=== PATIENT | female | born 1995 | race American Indian/Alaskan Native ===

== ENCOUNTER 2020-09-15 13:03 | Emergency (ER) | payer OTHER ==
[2020-09-15 14:11] VITALS: BP 133/83
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
[2020-09-15 16:18] LABS: HCG Qualitative,Urine Negative (Negative)
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
== END 2020-09-15 18:15 | disposition home or self-care (01) ==
LOC: ED 13:03
DX: S39.012A Strain of muscle, fascia and tendon of lower back, initial encounter (principal); V89.2XXA Person injured in unspecified motor-vehicle accident, traffic, initial encounter; Y93.89 Activity, other specified; Y92.410 Unspecified street and highway as the place of occurrence of the external cause; Y99.8 Other external cause status
CPT/HCPCS: 72100; 81025; 99283

== ENCOUNTER 2020-11-02 02:42 | Emergency (ER) | payer MEDICAID, OTHER ==
[2020-11-02 02:52] VITALS: BP 130/81
[2020-11-02] MEDS ORDERED: predniSONE 20 MG TAB PO ONE (03:04)
[2020-11-02] MEDS ORDERED: ONDANSETRON 4 MG ODT TAB PO ONE (03:04)
[2020-11-02] MEDS ORDERED: HYDROcodone/ACETAMINOPHEN 5-325 MG TAB PO ONE (03:04)
[2020-11-02] MEDS ORDERED: IBUPROFEN 600 MG TAB PO ONE (03:04)
--- NOTE | 2020-11-02 03:20 | Emergency Department Report ---
ED Extremity Problem HPI - General Chief complaint: Extremity Injury, Lower Stated complaint: LEFT FOOT SWOLLEN Source: patient Mode of arrival: Ambulatory Limitations: No Limitations - History of Present Illness Initial comments: Patient is a 25-year-old -[place] female with no past medical history presents to the ED with complaint of acute onset persistent severe left plantar foot pain for the last 2 days. Patient said that she has not been able to bear weight on the left foot because of worsening pain in the left medial plantar aspect of the foot. Patient states that the pain is worse with ambulation or palpation of the left plantar foot, and that she has not been able to bear weight on the left foot because of pain. Patient denies fall, traumatic injury, numbness and tingling or weakness of left foot, back pain, chest pain, shortness of breath, dizziness, cough, heavy lifting or fever and chills. MD Complaint: extremity pain (left plantar foot pain) -: Sudden, days(s) (2) Location: left, lower extremity (left plantar foot pain) History of Same: No -: Yes arthralgia (left plantar foot pain) Radiation: none Severity scale (0 -10): 8 Quality: aching, sharp Consistency: constant Improves with: nothing Worsens with: weight bearing, walking, exertion, palpation Associated Symptoms: denies other symptoms, arthralgias. denies: chest pain, shortness of breath, fever, myalgias, rash, other - Related Data Previous Rx's Medication Instructions Recorded Last Taken Type Ibuprofen [Motrin 800 MG tab] 800 mg PO Q8HR PRN #21 tablet 09/15/20 Unknown Rx Ibuprofen [Motrin] 800 mg PO Q8HR PRN #30 tablet 11/02/20 Unknown Rx methOCARBAMOL [Robaxin TAB] 500 mg PO Q12H PRN 10 Days #24 tab 11/02/20 Unknown Rx predniSONE [Deltasone] 60 mg PO QDAY #15 tab 11/02/20 Unknown Rx traMADoL [Ultram] 50 mg PO Q6HR PRN #12 tablet 11/02/20 Unknown Rx Allergies Allergy/AdvReac Type Severity Reaction Status Date / Time No Known Allergies Allergy Unverified 09/15/20 14:11 ED Review of Systems ROS: Stated complaint: LEFT FOOT SWOLLEN Other details as noted in HPI Constitutional: denies: chills, fever Eyes: denies: eye pain, eye discharge, vision change ENT: denies: ear pain, throat pain Respiratory: denies: cough, shortness of breath, wheezing Cardiovascular: denies: chest pain, palpitations Endocrine: no symptoms reported Gastrointestinal: denies: abdominal pain, nausea, diarrhea Genitourinary: denies: urgency, dysuria, discharge Musculoskeletal: arthralgia (left plantar foot pain). denies: back pain, joint swelling Skin: denies: rash, lesions Neurological: denies: headache, weakness, paresthesias Psychiatric: denies: anxiety, depression Hematological/Lymphatic: denies: easy bleeding, easy bruising ED Past Medical Hx - Past Medical History Previous Medical History?: No - Surgical History Past Surgical History?: No - Social History Smoking Status: Never Smoker Substance Use Type: Alcohol - Medications Home Medications: Home Medications Medication Instructions Recorded Confirmed Last Taken Type Ibuprofen [Motrin 800 MG tab] 800 mg PO Q8HR PRN #21 tablet 09/15/20 Unknown Rx Ibuprofen [Motrin] 800 mg PO Q8HR PRN #30 tablet 11/02/20 Unknown Rx methOCARBAMOL [Robaxin TAB] 500 mg PO Q12H PRN 10 Days #24 tab 11/02/20 Unknown Rx predniSONE [Deltasone] 60 mg PO QDAY #15 tab 11/02/20 Unknown Rx traMADoL [Ultram] 50 mg PO Q6HR PRN #12 tablet 11/02/20 Unknown Rx ED Physical Exam - General Limitations: No Limitations General appearance: alert, in no apparent distress - Head Head exam: Present: atraumatic, normocephalic, normal inspection - Eye Eye exam: Present: normal appearance, PERRL, EOMI Pupils: Present: normal accommodation - ENT ENT exam: Present: normal exam, normal orophraynx, mucous membranes moist, TM's normal bilaterally, normal external ear exam - Neck Neck exam: Present: normal inspection, full ROM - Respiratory Respiratory exam: Present: normal lung sounds bilaterally. Absent: respiratory distress, wheezes, rales, rhonchi, stridor, chest wall tenderness, accessory muscle use, decreased breath sounds, prolonged expiratory - Cardiovascular Cardiovascular Exam: Present: regular rate, normal rhythm, normal heart sounds. Absent: systolic murmur, diastolic murmur, rubs, gallop - GI/Abdominal GI/Abdominal exam: Present: soft, normal bowel sounds. Absent: tenderness, guarding, rebound, hyperactive bowel sounds, hypoactive bowel sounds, or ganomegaly - Extremities Exam Extremities exam: Present: normal inspection, tenderness (Palpable left medial plantar foot tenderness with limited range of motion due to pain), normal capillary refill. Absent: full ROM, pedal edema, joint swelling, calf tenderness - Back Exam Back exam: Present: normal inspection, full ROM. Absent: tenderness, CVA tenderness (R), CVA tenderness (L), muscle spasm, paraspinal tenderness, vertebral tenderness - Neurological Exam Neurological exam: Present: alert, oriented X3, CN II-XII intact, normal gait, reflexes normal - Psychiatric Psychiatric exam: Present: normal affect, normal mood - Skin Skin exam: Present: warm, dry, intact, normal color. Absent: rash ED Course Vital Signs 11/02/20 02:48 Temperature 98.0 F Pulse Rate 87 Respiratory 12 Rate Blood Pressure 130/81 O2 Sat by Pulse 100 Oximetry ED Medical Decision Making - Medical Decision Making This is a 25-year-old -[place] female with no past medical history presents to the ED with complaint of acute onset persistent severe left plantar foot pain for the last 2 days. Patient said that she has not been able to bear weight on the left foot because of worsening pain in the left medial plantar aspect of the foot. Patient states that the pain is worse with ambulation or palpation of the left plantar foot, and that she has not been able to bear weight on the left foot because of pain. In the ED, patient is alert and oriented x3 and is not in any distress. Patient was treated for pain in the ED and also had her left foot fitted with postop shoe. On reevaluation, patient's pain is well controlled medication. Patient will discharge home on pain medi cations and advised follow-up with her primary care physician in 5 to 7 days for reevaluation or return to the ED immediately if symptoms get worse. - Differential Diagnosis Plantar fasciitis; Tendonitis; Muscle strain; muscle spasm Critical care attestation.: If time is entered above; I have spent that time in minutes in the direct care of this critically ill patient, excluding procedure time. ED Disposition Clinical Impression: Plantar fasciitis of left foot, Tendinitis of left foot Muscle strain of left foot Qualifiers: Encounter type: initial encounter Qualified Code(s): S96.912A - Strain of unspecified muscle and tendon at ankle and foot level, left foot, initial encounter Disposition: TO HOME OR SELFCARE Is pt being admited?: No Does the pt Need Aspirin: No Condition: Stable Instructions: Muscle Strain, [id number], Plantar Fasciitis Rehab-SportsMed, Tendinitis, [id number] Additional Instructions: Take medication with food, drink plenty of fluids and follow-up with your primary care physician in 7 to 10 days for reevaluation. Return to the ED immediately if symptoms get worse. Prescriptions: predniSONE [Deltasone] 60 mg PO QDAY #15 tab Ibuprofen [Motrin] 800 mg PO Q8HR PRN #30 tablet PRN Reason: Pain , Severe (7-10) methOCARBAMOL [Robaxin TAB] 500 mg PO Q12H PRN 10 Days #24 tab PRN Reason: Muscle Spasm traMADoL [Ultram] 50 mg PO Q6HR PRN #12 tablet PRN Reason: Pain Referrals: [facility] [Provider Group] - 7-10 days Time of Disposition: 03:20 Print Language: SAMI
== END 2020-11-02 03:50 | disposition home or self-care (01) ==
LOC: ED 02:42
DX: S96.912A Strain of unspecified muscle and tendon at ankle and foot level, left foot, initial encounter (principal); M72.2 Plantar fascial fibromatosis; M77.8 Other enthesopathies, not elsewhere classified; Z79.1 Long term (current) use of non-steroidal anti-inflammatories (NSAID); Z79.899 Other long term (current) drug therapy; X58.XXXA Exposure to other specified factors, initial encounter; Y93.89 Activity, other specified; Y92.89 Other specified places as the place of occurrence of the external cause; Y99.8 Other external cause status
CPT/HCPCS: 99282; J7512; Q0162